=== PATIENT | male | born 1960 | race African-American/Black ===

== ENCOUNTER 2020-12-15 15:16 | Inpatient (IN) | payer MEDICAID ==
[~2020-12-15] VITALS: Ht 172.7 cm; Wt 113.4 kg
[2020-12-15] MEDS ORDERED: SODIUM CHLORIDE 0.9% 1000ML BAG (SEPSIS BOLUS) IV ONE (15:45)
[2020-12-15 17:04] LABS: BASOPHILS % 0.3 % (0.0-2.0); EOSINOPHILS % 1.9 % (0.0-5.0); HEMATOCRIT. 39.3 % (42.0-52.0); LYMPHOCYTES % 10.9 % (20.0-50.0); MEAN CORPUSCULAR HEMOGLOBIN 27.5 pg (28.0-32.0); MEAN CORPUSCULAR VOLUME 90.2 fL (80.0-94.0); MEAN PLATELET VOLUME 9.3 fl (7.4-10.4); MONOCYTES % 9.9 % (2.0-8.0); PLATELET 132 x1000/uL (130-400); RED BLOOD CELL COUNT 4.36 mill/uL (4.7-6.1); RED CELL DISTRIBUTION WIDTH 15.1 % (11.6-14.6)
[2020-12-15 17:06] LABS: CHLORIDE 112 mEq/L (98-107)
[2020-12-15 17:08] LABS: INR 1.1; PROTHROMBIN TIME 11.4 sec (9.6-11.0)
[2020-12-15] MEDS ORDERED: CLONIDINE 0.1MG TABLET PO PRN (19:15)
[2020-12-15] MEDS ORDERED: ENOXAPARIN 40MG/0.4ML SYR SUBCUT SCH (19:15)
[2020-12-15] MEDS ORDERED: ZOLPIDEM TARTRATE 5MG TABLET PO PRN (19:15)
[2020-12-15] MEDS ORDERED: ONDANSETRON HCL 4MG/2ML INJ IV PRN (19:15)
[2020-12-15] MEDS ORDERED: GUAIFENESIN 200MG/10ML SUGAR FREE UDC PO PRN (19:15)
[2020-12-15] MEDS ORDERED: KETOROLAC 15MG/ML VIAL IV PRN (19:15)
[2020-12-15] MEDS ORDERED: NITROGLYCERIN 0.4MG TABLET SL SL PRN (19:15)
[2020-12-15] MEDS ORDERED: ACETAMINOPHEN 325MG TABLET PO PRN ×2 (19:15)
[2020-12-15] MEDS ORDERED: MAGNESIUM/ALUMINUM HYDROXIDE/SIMETHICONE 30ML UDC PO PRN (19:15)
[2020-12-15 20:08] LABS: FOLIC ACID (FOLATE) SERUM 15.4 ng/mL (>5.38)
[2020-12-15 21:02] LABS: T4 FREE 0.91 ng/dL (0.76-1.46)
[2020-12-15] MEDS: SODIUM CHLORIDE 0.9% 1,000 ML IV SCH (21:59)
[2020-12-15 23:00] VITALS: BP 125/84
[2020-12-15 23:52] LABS: CREATINE KINASE 96 IU/L (39-308)
[2020-12-15 23:53] LABS: CREATINE KINASE MB FRACTION 1.6 ng/mL (0.5-3.6)
[2020-12-16] VITALS: BP 125/84
[2020-12-16 00:02] LABS: CLARITY URINE CLEAR (CLEAR); COLOR URINE YELLOW (YELLOW); KETONES URINE NEGATIVE (NEGATIVE); LEUKOCYTE ESTERASE URINE NEGATIVE (NEGATIVE); NITRITE URINE NEGATIVE (NEGATIVE); OCCULT BLOOD URINE NEGATIVE (NEGATIVE); PROTEIN URINE NEGATIVE (NEGATIVE); SPECIFIC GRAVITY URINE 1.012 (1.005-1.030); UROBILINOGEN URINE 0.2 E.U./dL (0.2-1.0)
[2020-12-16 00:12] LABS: *BENZODIAZEPINES SCREEN URINE NEGATIVE (NEGATIVE); *COCAINE SCREEN URINE NEGATIVE (NEGATIVE); METHADONE URINE SCREEN NEGATIVE (NEGATIVE); OPIATES URINE SCREEN NEGATIVE (NEGATIVE); PHENCYCLIDINE URINE SCREEN NEGATIVE (NEGATIVE)
[2020-12-16 00:14] LABS: *AMPHETAMINES SCREEN URINE NEGATIVE (NEGATIVE); *BARBITURATES SCREEN URINE NEGATIVE (NEGATIVE); CANNABINOID URINE SCREEN NEGATIVE (NEGATIVE)
[2020-12-16] MEDS: ASCORBIC ACID 500 MG TABLET PO SCH ×3 (01:12→20:36)
[2020-12-16] MEDS: ENOXAPARIN 30MG/0.3ML SYR SUBCUT SCH ×2 (01:12→20:36)
[2020-12-16] MEDS ORDERED: HYDR-4134 PO (02:17)
[2020-12-16] MEDS ORDERED: HYDR-4009 PO (02:17)
[2020-12-16] MEDS ORDERED: INSU100V37 SQ (02:17)
[2020-12-16] MEDS ORDERED: MELO-106 PO (02:17)
[2020-12-16] MEDS ORDERED: AMLO10TA80 PO (02:17)
[2020-12-16] MEDS ORDERED: TAMS-11 PO (02:17)
[2020-12-16] MEDS ORDERED: ATOR40TA70 PO (02:17)
[2020-12-16] MEDS ORDERED: COLC0.6C3 PO (02:17)
[2020-12-16] MEDS ORDERED: FAMO20TA8 PO (02:17)
[2020-12-16] MEDS ORDERED: LISI20TA31 PO (02:17)
[2020-12-16] MEDS ORDERED: TOPI25TA48 PO (02:17)
[2020-12-16] MEDS ORDERED: ASPI-1406 PO (02:17)
[2020-12-16] MEDS ORDERED: GABA-290 PO (02:17)
[2020-12-16] MEDS ORDERED: NITR0.4T49 SL (02:17)
[2020-12-16] MEDS ORDERED: INSU100I28 SQ (02:17)
[2020-12-16] MEDS ORDERED: CYCL10TA7 PO (02:17)
[2020-12-16] MEDS ORDERED: INDO-13 PO (02:17)
[2020-12-16] MEDS: SODIUM CHLORIDE 0.9% 1,000 ML IV SCH (04:21)
[2020-12-16 05:01] VITALS: BP 117/75
[2020-12-16 06:35] LABS: BASOPHILS % 0.4 % (0.0-2.0); EOSINOPHILS % 3.8 % (0.0-5.0); HEMATOCRIT. 34.7 % (42.0-52.0); LYMPHOCYTES % 17.2 % (20.0-50.0); MEAN CORPUSCULAR HEMOGLOBIN 28.1 pg (28.0-32.0); MEAN CORPUSCULAR VOLUME 89.3 fL (80.0-94.0); MEAN PLATELET VOLUME 9.7 fl (7.4-10.4); MONOCYTES % 12.3 % (2.0-8.0); NEUTROPHILS % 66.3 % (40.0-76.0); PLATELET 130 x1000/uL (130-400); RED BLOOD CELL COUNT 3.89 mill/uL (4.7-6.1)
[2020-12-16 06:45] LABS: CHLORIDE 112 mEq/L (98-107)
[2020-12-16 07:07] LABS: PHOSPHORUS 3.3 mg/dL (2.5-4.9)
[2020-12-16 07:08] LABS: CREATINE KINASE 81 IU/L (39-308)
[2020-12-16 07:11] LABS: CREATINE KINASE MB FRACTION 1.9 ng/mL (0.5-3.6)
[2020-12-16 08:00] VITALS: BP 114/70
[2020-12-16] MEDS: ZINC SULFATE 220 MG ( 50 ) CAPSULE PO SCH (10:01)
[2020-12-16] MEDS: CHOLECALCIFEROL (D3) 1000 UNIT TABLET PO SCH (10:01)
[2020-12-16 12:00] VITALS: BP 129/79
[2020-12-16 16:00] VITALS: BP 110/20
[2020-12-16] MEDS ORDERED: DEXTROSE 50% WATER 50ML SYRINGE IV PRN (17:15)
[2020-12-16] MEDS: INSULIN LISPRO 100 UNITS/ML SUBCUT SCH ×2 (17:50→20:09)
[2020-12-16 20:00] VITALS: BP 130/83
[2020-12-16] MEDS: BLOOD SUGAR DIAGNOSTIC STRIP TEST SCH (20:09)
[2020-12-17] VITALS: BP 117/62
[2020-12-17 04:00] VITALS: BP 135/88
[2020-12-17] MEDS: INSULIN LISPRO 100 UNITS/ML SUBCUT SCH ×2 (06:21→12:15)
[2020-12-17] MEDS: BLOOD SUGAR DIAGNOSTIC STRIP TEST SCH ×2 (06:21→12:18)
[2020-12-17 08:00] VITALS: BP 121/84
[2020-12-17] MEDS: ZINC SULFATE 220 MG ( 50 ) CAPSULE PO SCH (08:28)
[2020-12-17] MEDS: CHOLECALCIFEROL (D3) 1000 UNIT TABLET PO SCH (08:28)
[2020-12-17] MEDS: ASCORBIC ACID 500 MG TABLET PO SCH (08:29)
[2020-12-17 09:56] VITALS: BP 121/84
[2020-12-17 12:00] VITALS: BP 124/82
[2020-12-17] MEDS ORDERED: ENOXAPARIN 40MG/0.4ML SYR SUBCUT SCH (21:00)
== END 2020-12-17 15:40 | disposition home or self-care (01) | DRG 241 ==
LOC: ER 15:16 → 5WST 17:47 → ENRESERV 20:43
PROVIDERS: ADMIT Internal Medicine; ATTEND Internal Medicine
DX: K29.70 Gastritis, unspecified, without bleeding (principal); N17.0 Acute kidney failure with tubular necrosis; E83.51 Hypocalcemia; D63.8 Anemia in other chronic diseases classified elsewhere; E11.9 Type 2 diabetes mellitus without complications; I10 Essential (primary) hypertension; I25.10 Atherosclerotic heart disease of native coronary artery without angina pectoris; K57.90 Diverticulosis of intestine, part unspecified, without perforation or abscess without bleeding; Z95.0 Presence of cardiac pacemaker; Z79.1 Long term (current) use of non-steroidal anti-inflammatories (NSAID); Z79.4 Long term (current) use of insulin; Z79.899 Other long term (current) drug therapy
CPT/HCPCS: 36415; 71045; 74176; 80053; 80305; 81003; 82550; 82553; 82607; 82746; 82962; 83540; 83550; 83605; 83615; 83735; 83880; 84100; 84145; 84439; 84443; 84484; 85025; 85379; 86850; 86900; 93005; 93970; 97162; 97166; 97167; 99285; C1893; J1650; J1815; J1885; J7030